=== PATIENT | male | born 1945 | race Caucasian/White ===

== ENCOUNTER 2021-11-29 11:43 | Outpatient (CLI) | payer MEDICARE ==
[2021-11-29 22:22] LABS: SARS-CoV-2 PCR by NAA Not Detected (NotDetected)
== END 2021-11-29 11:44 | disposition home or self-care (01) ==
LOC: CSHLAB 11:43
PROVIDERS: ATTEND Surgery
DX: Z20.822 Contact with and (suspected) exposure to COVID-19 (principal); C09.9 Malignant neoplasm of tonsil, unspecified
CPT/HCPCS: U0003; U0005

== ENCOUNTER 2021-11-30 10:12 | Day surgery (SDC) | payer MEDICARE ==
[2021-11-30 09:09] VITALS: BMI 16.9
[2021-11-30] MEDS ORDERED: Lidocaine 1% MPF 2 ML VIAL ONE (10:50)
[2021-11-30] MEDS ORDERED: Lidocaine 2% MPF 10 ML AMP (For Epidural Use) ONE (13:01)
[2021-11-30] MEDS ORDERED: PROPOFOL 20 ML ONE (13:01)
[2021-11-30] MEDS ORDERED: Midazolam HCl 2 mg/2 ml Vial ONE (13:01)
[2021-11-30] MEDS ORDERED: Acetaminophen 325 MG TAB PO PRN (13:51)
[2021-11-30] MEDS ORDERED: HYDROcodone/Acetaminophen 5/325 mg Tablet PO PRN (13:51)
== END 2021-11-30 14:32 | disposition home or self-care (01) ==
LOC: CSHSDC 10:12
PROVIDERS: ATTEND Surgery
PROC: 0DH63UZ Insertion of Feeding Device into Stomach, Percutaneous Approach (ICD-10-PCS; principal; 2021-11-30)
DX: C09.9 Malignant neoplasm of tonsil, unspecified (principal); Z87.891 Personal history of nicotine dependence; Z79.899 Other long term (current) drug therapy
CPT/HCPCS: J2250; J2704; J3490